=== PATIENT | male | born 1990 | race Caucasian/White ===

== ENCOUNTER 2025-05-21 11:40 | Emergency (ER) | payer MEDICAID ==
[~2025-05-21] VITALS: Ht 188 cm; Wt 119.8 kg
[2025-05-21 11:46] VITALS: TEMP 97.5
--- NOTE | 2025-05-21 12:28 | RADIOLOGY REPORT ---
CLINICAL INDICATION: FOOT PAIN LT. TECHNIQUE: 3 radiographic views of the left foot were obtained. Comparison: None FINDINGS/IMPRESSION: There is no evidence of acute fracture or dislocation. The visualized joint space is well maintained. The alignment is anatomical. There is no radiopaque foreign body.
--- NOTE | 2025-05-21 12:50 | Physician Documentation ---
History of Present Illness ~ Chief Complaint: Foot pain Stated Complaint: FOOT PAIN Time Seen by MD: 12:10 Primary Medical Doctor: dr. qureshi [facility] HPI Patient is seen today with complaints of pain and redness of his left foot in the dorsum between digits two and four. Patient states he was working out and lifting heavy weights doing quad press and squats a couple of days ago but states he had no pain while doing his exercise and walked out of the gym at that point then yesterday felt he pulled his left hand a little bit but that has now resolved but now states he has significant pain in his left foot and can hardly walk because of the pain and he felt feels pain in the dorsum and plantar aspect of his left foot distally by the MTP joints mainly of digits two through four. He denies any numbness or tingling or fevers or chills. He has no other concern or complaint at this time. Tetanus witin 5 years: No Medication Reconciliation Allergies: Coded Allergies: Sulfa (Sulfonamide Antibiotics) (Unverified Allergy, Unknown, 05/21/25) Scheduled Indomethacin (Indomethacin), 1 CAP PO Q8H Past Medical History Past Medical History: Anxiety, Depression Past Surgical History: no surgical history Lives In: Home Review of Systems Constitutional: Denies: chills, fever, weakness Eyes: Denies: pain, blurred vision ENT: Denies: ear pain, nose pain, throat pain, mouth pain Respiratory: Denies: cough, shortness of breath Cardiovascular: Denies: chest pain, palpitations Gastrointestinal: Denies: abdominal pain, nausea, vomiting Genitourinary: Denies: burning, dysuria Male Genitalia: Denies: penile discharge, testicular pain Neurological: Denies: headache, dizziness Musculoskeletal: Denies: pain, swelling Integumentary: Denies: rash, lesions Allergic/Immunologic: Denies: hives, itching Hematologic/Lymphatic: Denies: no symptoms reported Psychiatric: Denies: depression, anxiety Physical Exam Vital Signs: Temperature: 97.5, Source: Temporal, Heart Rate: 100, Respiratory Rate: 18, BP: 152/98, Pulse Oximetry: 97, Weight: 119.800 Oxygen Flow Rate: 0 Physical Exam General: Awake and Alert, no acute distress. HEENT: Conjunctiva pink, Sclera clear, Mucus Membranes moist. Neck: Supple without masses and tenderness. Resp: Unlabored. Lungs clear to auscultation bilaterally. Musculoskeletal: Patient on exam does have redness in the dorsum of his left foot with significant tenderness to palpation of the MTP joints dorsally as well as on plantar surface of digits two through four mainly of digits two and three. Patient is neurovascularly intact distally. Patient has very mild warmth in his area. I do not appreciate any skin breakdown or sign of integumentary injury. Extremities: No cyanosis,clubbing or edema. Skin: Warm and Dry. Progress Results/Orders Results/Orders Completed Orders - CAITY PARMAR Ketorolac Trometh 30mg/Ml Vial (Toradol (05/21/25 13:15) Medications Received in ER Medications (Trade) Dose Ordered Sig/Herb Route PRN Reason Start Time Stop Time Status Last Admin Dose Admin (Toradol inj. 30mg/ml) 30 mg ONCE STAT IM 05/21/25 13:15 05/21/25 13:17 DC 05/21/25 13:23 30 MG Vital Signs 05/21/25 11:46 Temp 97.5 Pulse 100 Resp 18 B/P (MAP) 152/98 Pulse Ox 97 O2 Flow Rate 0 EKG/XRAY/CT/US/VASC/MRI Bone/Soft Tissue X-Ray (Ext.) : Additional Comment X-ray of left foot interpreted by myself today shows no sign of acute fracture, bones in anatomic alignment, no osteolytic or blastic lesions. DIAGNOSTIC RADIOLOGY Patient: KEREN FARNSWORTH Medical Record: [id number] [facility] : 1990, Age: 35 Sex: Male Location: ER Patient Status: REG ER Service Date/Time: 05/21/25/ 1151 Ordering Physician: KEREN NEGRON MD Exam: FOOT, COMPLETE (3VW MIN) CLINICAL INDICATION: FOOT PAIN LT. TECHNIQUE: 3 radiographic views of the left foot were obtained. Comparison: None FINDINGS/IMPRESSION: There is no evidence of acute fracture or dislocation. The visualized joint space is well maintained. The alignment is anatomical. There is no radiopaque foreign body. Electronically Signed by:ESTHER HERNANDEZ MD Date & Time: 05/21/251225 Dictated by: ESTHER HERNANDEZ MD Dictation date and time: 05/21/256 Primary Care Provider: NO PRIMARY CARE PROVIDER cc: KEREN NEGRON MD ~ Medical Decision Making Findings Patient is seen today with complaints of pain and redness of his left foot in the dorsum between digits two and four. Patient states he was working out and lifting heavy weights doing quad press and squats a couple of days ago but states he had no pain while doing his exercise and walked out of the gym at that point then yesterday felt he pulled his left hand a little bit but that has now resolved but now states he has significant pain in his left foot and can hardly walk because of the pain and he felt feels pain in the dorsum and plantar aspect of his left foot distally by the MTP joints mainly of digits two through four. He denies any numbness or tingling or fevers or chills. He has no other concern or complaint at this time. Patient was given Toradol 30 mg IM in the ED today. Prescription of indomethacin 50 mg to be taken by mouth 3 times a day sent to patient's pharmacy to be taken for two to three days and patient may take her off afterwards. Patient will return to ED immediately should the area of redness spread or wor sen or pain worsen or swelling increase. Patient voiced understanding. Patient will otherwise follow up with primary care in 2-5 days if no better as needed sooner. Departure Disposition: HOME / SELF CARE / HOMELESS Impression: Primary Impression: Foot pain Qualified Codes: M79.672 - Pain in left foot Condition: Stable Discharge Instructions: Gout, [id number] Additional Instructions: Patient was given Toradol 30 mg IM in the ED today. Prescription of ind omethacin 50 mg to be taken by mouth 3 times a day sent to patient's pharmacy to be taken for two to three days and patient may take her off afterwards. Patient will return to ED immediately should the area of redness spread or worsen or pain worsen or swelling increase. Patient voiced understanding. Patient will otherwise follow up with primary care in 2-5 days if no better as needed sooner. Departure Forms: Excuse form Work or School Excused From: Work Excuse beginning now through the following date: May 23, 2025 Referrals: NO PRIMARY CARE PROVIDER (PCP) Prescriptions Indomethacin (Indomethacin) 50 Mg Capsule 1 CAP PO Q8H for arthritis for 5 Days, #15 CAP 0 Refills with food Prov: CAITY PARMAR 05/21/25 Signature Scribe Signature: No scribe Attestation: No scribe CAITY PARMAR May 21, 2025 12:50
[2025-05-21] MEDS ORDERED: INDO50CA96 PO (13:23)
[2025-05-21] MEDS: ketorolac trometh 30MG/ML vial 30 MG/ML VIAL IM STA (13:23)
[2025-05-21 13:29] VITALS: BP 140/84; PULSE 88; RESP 16; O2SAT 95
== END 2025-05-21 13:42 | disposition home or self-care (01) ==
LOC: ER 11:41
DX: M79.672 Pain in left foot (principal); Z88.2 Allergy status to sulfonamides
CPT/HCPCS: 73630; 96372; 99283; J1885